=== PATIENT | male | born 1985 | race Caucasian/White ===

== ENCOUNTER → 2016-07-22 | Outpatient (CLI) | payer OTHER | END | disposition disaster alternative care site (69) | LOC: GLAB 09:00 | DX: Z31.41 Encounter for fertility testing (principal) ==

== ENCOUNTER → 2016-10-16 | Emergency (ER) | payer OTHER | END | disposition disaster alternative care site (69) | LOC: GAMB 22:57 | DX: S09.93XA Unspecified injury of face, initial encounter (principal); X58.XXXA Exposure to other specified factors, initial encounter ==